=== PATIENT | male | born 1990 | race African-American/Black ===

== ENCOUNTER 2022-08-10 13:59 | Emergency (ER) | payer MEDICAID, OTHER | END 2022-08-10 16:10 | disposition home or self-care (01) | LOC: CSHERS 13:59 | DX: H10.13 Acute atopic conjunctivitis, bilateral (principal) | CPT/HCPCS: 99282 ==

== ENCOUNTER 2022-08-13 07:52 | Emergency (ER) | payer OTHER | END 2022-08-13 09:24 | disposition home or self-care (01) | LOC: CSHERS 07:52 | DX: R05.9 Cough, unspecified (principal) | CPT/HCPCS: 71045 ==

== ENCOUNTER 2024-06-11 17:06 | Emergency (ER) | payer OTHER ==
[~2024-06-11 17:06] MED LIST: Iopamidol 370 76% 100 ML VIAL ONE
[2024-06-11 19:48] LABS: #Basophils 0.04 10x3/uL (0.0-0.2); #Eosinophils 0.08 10x3/uL (0.0-0.5); #Monocytes 0.55 10x3/uL (0.0-1.1); #Neutrophils 2.54 10x3/uL (1.5-8.4); %Basophils 0.7 % (0.0-2.0); %Eosinophils 1.3 % (0.0-6.0); %Monocytes 9.1 % (0.0-10.0); %Neutrophils 41.7 % (40.0-75.0); Hematocrit 43.4 % (38.8-50.0); Hemoglobin 14.2 g/dL (13.5-17.5); Mean Corpuscular HGB CONC 32.7 g/dL (32.0-36.0); Mean Corpuscular Hemoglobin 26.3 pg (27.0-33.0); Mean Corpuscular Volume 80.4 fL (81.2-95.1); Mean Platelet Volume 9.7 fL (7.4-10.4); Platelet Count 185 10x3/uL (150-450); RBC Distribution Width 14.3 % (11.5-14.5); White Blood Cell (WBC) Count 6.1 10x3/uL (3.5-10.5)
[2024-06-11 19:58] LABS: Anion Gap 12 mmol/L (10-20); BUN (Urea Nitrogen) 12 mg/dL (8.9-20.6); Calc. Creatinine Clearance 0 mL/min (70-130); Calcium 9.3 mg/dL (7.8-10.44); Carbon Dioxide 24 mmol/L (22-29); Chloride 108 mmol/L (98-107); Estimated GFR 97; Glucose 86 mg/dL (70-105); Potassium 4.1 mmol/L (3.5-5.1); Sodium 140 mmol/L (136-145)
== END 2024-06-11 21:25 | disposition home or self-care (01) ==
LOC: CSHERS 17:06
DX: K92.1 Melena (principal)
CPT/HCPCS: 74177; 80048; 85025; Q9967